=== PATIENT | male | born 1960 ===

== ENCOUNTER 2016-10-24 09:34 | Inpatient (IN) | payer BC, OTHER ==
[2016-10-24 09:45] VITALS: BMI 28.0
--- NOTE | 2016-10-24 10:14 | HP ---
CIWA Score - CIWA Score Nausea/Vomitin-Mild Nausea/No Vomiting Muscle Tremors: 4-Moderate,w/Arms Extend Anxiety: 4-Mod. Anxious/Guarded Agitation: 1-Slight > Activity Paroxysmal Sweats: 1-Minimal Palms Moist Orientation: 0-Oriented Tacttile Disturbances: 1-Very Mild Itch/Numbness Auditory Disturbances: 1-Very Mild Visual Disturbances: 1-Very Mild Sensitivity Headache: 2-Mild CIWA-Ar Total Score: 16 Admission ROS BHS - HPI Chief Complaint: I want to stop drinking Allergies/Adverse Reactions: Allergies Allergy/AdvReac Type Severity Reaction Status Date / Time No Known Allergies Allergy Verified 10/24/16 10:00 History of Present Illness: 56 yo gentleman here for detox from alcohol - states he was sober x 3 years then relapsed following his mother's . No seizures but does have black outs. Previous history of rehab. Exam Limitations: Clinical Condition - Ebola screening Have you traveled outside of the country in the last 21 days: No (N) Have you had contact with anyone from an Ebola affected area: No Have you been sick,other than usual withdrawal symptoms: No Do you have a fever: No - Review of Systems Constitutional: Loss of Appetite, Malaise, Changes in sleep, Weakness, Unintentional Wgt. Loss EENT: reports: No Symptoms Reported Respiratory: reports: No Symptoms reported Cardiac: reports: No Symptoms Reported GI: reports: Diarrhea, Poor Appetite, Indigestion : reports: Frequency Musculoskeletal: reports: Back Pain, Muscle Pain Integumentary: reports: No Symptoms Reported Neuro: reports: Headache Endocrine: reports: No Symptoms Reported Hematology: reports: No Symptoms Reported Psychiatric: reports: Judgement Intact, Mood/Affect Appropiate, Anxious Other Systems: Reviewed and Negative Patient History - Patient Medical History Hx Anemia: No Hx Asthma: No Hx Chronic Obstructive Pulmonary Disease (COPD): No Hx Cancer: No Hx Cardiac Disorders: No Hx Congestive Heart Failure: No Hx Hypertension: Yes (on meds) Hx Hypercholesterolemia: No Hx Pacemaker: No HX Cerebrovascular Accident: No Hx Seizures: No Hx Dementia: No Hx Diabetes: No Hx Gastrointestinal Disorders: No Hx Liver Disease: No Hx Genitourinary Disorders: No Hx Sexually Transmitted Disorders: Yes Hx Renal Disease (ESRD): No Hx Thyroid Disease: No Hx Human Immunodeficiency Virus (HIV): No Hx Hepatitis C: No Hx Depression: Yes Hx Suicide Attempt: Yes (years ago) Hx Bipolar Disorder: Yes Hx Schizophrenia: Yes (hears voices, hospitalized 1999) - Patient Surgical History Past Surgical History: Yes Hx Abdominal Surgery: Yes (left hiatal hernia 1974) Hx Orthopedic Surgery: Yes (left knee 2014 - total knee replacement) - PPD History Previous Implant?: Yes Documented Results: Negative w/o proof Implanted On Prior R Admission?: No PPD to be Administered?: Yes - Reproductive History Patient is a Female of Child Bearing Age (11 -55 yrs old): No (male) - Smoking Cessation Smoking history: Current every day smoker Have you smoked in the past 12 months: Yes Aproximately how many cigarettes per day: 2 Hx Chewing Tobacco Use: No Initiated information on smoking cessation: Yes 'Breaking Loose' booklet given: 10/24/16 (given on floor) - Substance & Tx. History Hx Alcohol Use: Yes Hx Substance Use: Yes Substance Use Type: Alcohol, Cocaine Hx Substance Use Treatment: Yes - Substances Abused Alcohol Route: Oral Frequency: Daily Amount used: 22oz beers three; 2 pints liquor Age of first use: 20 Date of Last Use: 10/24/16 Cocaine Route: Smoking Frequency: 1-2 times per week Amount used: $50 Age of first use: 26 Date of Last Use: 10/23/16 Family Disease History - Family Disease History Family Disease History: Heart Disease: Father (, etoh), Other: Father, Mother (internal bleeding, ), Brother (mental illness, eth) Admission Physical Exam [facility] - Vital Signs Vital Signs: Vital Signs - 24 hr 10/24/16 09:44 Temperature 97.6 F Pulse Rate 100 H Respiratory 18 Rate Blood Pressure 132/86 - Physical General Appearance: Yes: Nourished, Appropriately Dressed, Mild Distress, Anxious HEENTM: Yes: Hearing grossly Normal, Normal ENT Inspection, Normocephalic, Normal Voice, Pharynx Normal Respiratory: Yes: Normal Breath Sounds, No Respiratory Distress Neck: Yes: No masses,lesions,Nodules, Supple, Trachea in good position Breast: Yes: Breast Exam Deferred Cardiology: Yes: Regular Rhythm, Regular Rate Abdominal: Yes: Soft Genitourinary: Yes: Frequency Musculoskeletal: Yes: full range of Motion, Gait Steady, Joint Stiffness Extremities: Yes: Normal Inspection, Normal Range of Motion, Non-Tender Neurological: Yes: Fully Oriented, Alert, Normal Mood/Affect Integumentary: Yes: Normal Color, Warm Lymphatic: Yes: Within Normal Limits - Diagnostic (1) Alcohol dependence with uncomplicated withdrawal Current Visit: Yes Status: Chronic (2) Cocaine dependence Current Visit: Yes Status: Chronic Qualifiers: Substance use status: uncomplicated Qualified Code(s): F14.20 - Cocaine dependence, uncomplicated (3) HTN (hypertension) Current Visit: Yes Status: Acute Qualifiers: Hypertension type: essential hypertension Qualified Code(s): I10 - Essential (primary) hypertension Cleared for Admission S - Detox or Rehab [facility] Level of Care: Medically Managed Detox Regimen/Protocol: Librium [facility] Breath Alcohol Content Breath Alcohol Content: 0.029 Urine Drug Screen - Results Drug Screen Negative: No Urine Drug Screen Results: HENRIK-Cocaine
[2016-10-24] MEDS ORDERED: MAG HYDROX/AL HYDROX/SIMETH 30 ML UNIT-DOSE CUP PO PRN (10:23)
[2016-10-24] MEDS ORDERED: P-EPHED 60MG/TRIPROLIDI 2.5MG TABLET PO PRN (10:23)
[2016-10-24] MEDS ORDERED: MAGNESIUM CITRATE 300 ML BOTTLE PO PRN (10:23)
[2016-10-24] MEDS ORDERED: guaiFENesin/D-METHORPHAN HB 10 ML UNIT-DOSE CUPS PO PRN (10:23)
[2016-10-24] MEDS ORDERED: hydrOXYzine PAMOATE 50 MG CAPSULE (FP) PO PRN (10:23)
[2016-10-24] MEDS ORDERED: LOPERAMIDE HCL 2 MG CAPSULE PO PRN (10:23)
[2016-10-24] MEDS ORDERED: MAGNESIUM HYDROX 2400MG/30ML ORAL SUSPENSION 30 ML CUP PO PRN (10:23)
[2016-10-24] MEDS ORDERED: MENTHOL/PHENOL 1 EACH UD MM PRN (10:23)
[2016-10-24] MEDS ORDERED: chlordiazePOXIDE HCL 25 MG CAPSULE PO PRN (10:23)
[2016-10-24] MEDS ORDERED: chlordiazePOXIDE HCL 25 MG CAPSULE PO ONE (12:45)
[2016-10-24] MEDS: IBUPROFEN 400 MG TABLET (FP) PO PRN (14:10)
--- NOTE | 2016-10-24 16:07 | EKG ---
Test Reason : Blood Pressure : / mmHG Vent. Rate : 107 BPM Atrial Rate : 107 BPM P-R Int : 190 ms QRS Dur : 160 ms QT Int : 372 ms P-R-T Axes : 000 -36 050 degrees QTc Int : 496 ms SINUS TACHYCARDIA LEFT AXIS DEVIATION NON-SPECIFIC INTRA-VENTRICULAR CONDUCTION BLOCK ABNORMAL ECG NO PREVIOUS ECGS AVAILABLE Confirmed by JOEL SARKAR MD ([id number]) on 10/24/2016 4:07:01 PM Referred By: Confirmed By:JOEL SARKAR MD
[2016-10-24] MEDS: chlordiazePOXIDE HCL 25 MG CAPSULE PO SCH ×2 (17:29→22:40)
[2016-10-24 17:54] LABS: URINE APPEARANCE CLEAR; URINE BILIRUBIN NEGATIVE (NEGATIVE); URINE BLOOD NEGATIVE (NEGATIVE); URINE COLOR YELLOW; URINE GLUCOSE (UA) NEGATIVE (NEGATIVE); URINE KETONE TRACE (NEGATIVE); URINE LEUK ESTERASE NEGATIVE (NEGATIVE); URINE NITRITE NEGATIVE (NEGATIVE); URINE PROTEIN NEGATIVE (NEGATIVE); URINE UROBILINOGEN NEGATIVE E.U./dl (0.2-1.0)
--- NOTE | 2016-10-24 18:25 | CONSULT ---
[facility] Psychiatric Consult - Data Date of interview: 10/24/16 Admission source: [facility] Identifying data: Readmission to [facility] for this 56 y/o AA male seeking detox treatment on for alcohol dependence.Patient is single,a father of one,domiciled,unemployed and supported on [facility] benefits. Substance Abuse History: - Smoking Cessation. Smoking history: Current every day smoker. Have you smoked in the past 12 months: Yes. Aproximately how many cigarettes per day: 2. Hx Chewing Tobacco Use: No. Initiated information on smoking cessation: Yes. 'Breaking Loose' booklet given: 10/24/16 (given on floor). - Substance & Tx. History. Hx Alcohol Use: Yes. Hx Substance Use: Yes. Substance Use Type: Alcohol, Cocaine. Hx Substance Use Treatment: Yes. - Substances Abused. Alcohol. Route: Oral. Frequency: Daily. Amount used : 22oz beers three; 2 pints liquor. Age of first use: 20. Date of Last Use: . Cocaine. Route: Smoking. Frequency: 1-2 times per week. Amount used: $50. Age of first use: 26. Date of Last Use: 10/23/16. Confirmed by patient. Medical History: Remarkable for a history of left knee replacement (2014), surgery for left hiatal hernia (1974) and hypertension. Psychiatric History: History of multiple psychiatric hospitalizations.Known to [facility] and [facility].Patient is diagnosed with Schizoaffective Disorder.Mr Morales states that he is followed at the [facility] where he sees Dr Benton for medication management (depakote,seroquel).No recall of doses.The patient admits to prolonged non-adherence to [facility] care.Has not kept his appointment with his psychiatrist or taken medications for " more than two months" as per self- report.He is now requesting to get back on seroquel and depakote.Noted history of a suicide attempt 10 years ago. Physical/Sexual Abuse/Trauma History: Patient denies. Additional Comment: Urine Drug Screen Results: HENRIK-Cocaine.Noted. Mental Status Exam - Mental Status Exam Alert and Oriented to: Time, Place, Person Patient Appearance: Well Groomed Mood: Anxious, Apprehensive, Hopeful Affect: Mood Congruent Patient Behavior: Fatigued, Appropriate, Cooperative Speech Pattern: Clear, Appropriate Voice Loudness: Normal Thought Process: Goal Oriented Thought Disorder: Not Present Hallucinations: Denies Suicidal Ideation: Denies Homicidal Ideation: Denies Insight/Judgement: Poor Sleep: Poorly, Difficulty falling asleep Appetite: Good Muscle strength/Tone: Normal Gait/Station: Normal Psychiatric Findings - Problem List (Kermit 1, 2,3) (1) Alcohol dependence with uncomplicated withdrawal Current Visit: Yes Status: Acute (2) Cocaine dependence Current Visit: Yes Status: Acute Qualifiers: Substance use status: uncomplicated Qualified Code(s): F14.20 - Cocaine dependence, uncomplicated (3) Substance induced mood disorder Current Visit: Yes Status: Acute (4) Schizoaffective disorder Current Visit: Yes Status: Chronic Comment: Self-report. (5) HTN (hypertension) Current Visit: Yes Status: Acute Qualifiers: Hypertension type: essential hypertension Qualified Code(s): I10 - Essential (primary) hypertension - Initial Treatment Plan Initial Treatment Plan: Psychoeducation.Detoxification.Medications : seroquel 100 mg po hs (patient has not taken that medication since june 2016) + depakote 500 mg po bid (to start after valproic acid level becomes available) .To hold if liver function tests are abnormal.Pharmacy claims are reviewed : confirmed non compliance with medications.Titration of seroquel as clinically indicated.Observation.Side effects/benefits discussed with patient.He agrees with this careplan.
[2016-10-24] MEDS: THIAMINE HCL 100 MG TABLET (FP) PO SCH (22:39)
[2016-10-24] MEDS: QUEtiapine FUMARATE 100 MG TABLET (FP) PO SCH (22:39)
[2016-10-24] MEDS: diphenhydrAMINE HCL 50 MG CAPSULE PO PRN (22:40)
[2016-10-25] MEDS: chlordiazePOXIDE HCL 25 MG CAPSULE PO SCH ×4 (05:41→22:45)
[2016-10-25 09:20] LABS: MCH 29.2 pg (25.7-33.7); MCHC 33.4 g/dl (32.0-35.9); MEAN CELL VOLUME 87.4 fl (80-96); MEAN PLT VOLUME 10.7 fl (7.5-11.1); PLATELET COUNT 161 K/MM3 (134-434); RDW 15.1 % (11.9-15.9); WHITE BLOOD COUNT 5.6 K/mm3 (4.0-10.0)
[2016-10-25 09:28] LABS: ALBUMIN 4.4 g/dl (3.4-5.0); ANION GAP 10 (8-16); CALCIUM 9.4 mg/dL (8.5-10.1); CO2 25 mmol/L (21-32); GLUCOSE,RANDOM 80 mg/dL (74-106); SGOT/AST 20 U/L (15-37); SGPT/ALT 23 U/L (12-78)
[2016-10-25 09:30] LABS: ALK PHOS 77 U/L (45-117); BILIRUBIN,TOTAL 0.8 mg/dL (0.2-1.0); CREATININE 0.9 mg/dL (0.7-1.3); TOT PROT 7.7 g/dl (6.4-8.2)
[2016-10-25] MEDS: PRENATAL VITAMINS W/ FOLIC ACID TABLET (FP) PO SCH (10:38)
[2016-10-25] MEDS: METOPROLOL SUCCINATE 25 MG TAB.SR.24H (FP) PO SCH (10:39)
--- NOTE | 2016-10-25 14:53 | PN ---
S CIWA - CIWA Score Nausea/Vomitin-Mild Nausea/No Vomiting Muscle Tremors: 4-Moderate,w/Arms Extend Anxiety: 4-Mod. Anxious/Guarded Agitation: 3 Paroxysmal Sweats: No Perspiration Orientation: 0-Oriented Tacttile Disturbances: 1-Very Mild Itch/Numbness Auditory Disturbances: 0-None Visual Disturbances: 0-None Headache: 2-Mild CIWA-Ar Total Score: 15 BHS Progress Note (SOAP) Subjective: Restless, interrupted sleep, sweating, anxious, tremor Objective: 10/25/16 14:52 Last Vital Signs Temp Pulse Resp BP Pulse Ox 98.1 F 74 18 137/62 10/25/16 13:38 10/25/16 13:38 10/25/16 13:38 10/25/16 13:38 Laboratory Tests 10/24/16 10/25/16 10/25/16 14:00 06:00 07:20 WBC 5.6 RBC 5.27 Hgb 15.4 Hct 46.1 MCV 87.4 MCHC 33.4 RDW 15.1 Plt Count 161 MPV 10.7 Sodium Potassium Chloride Carbon Dioxide Anion Gap BUN Creatinine Creat Clearance w eGFR Random Glucose Calcium Total Bilirubin AST ALT Alkaline Phosphatase Total Protein Albumin Urine Color Yellow Urine Appearance Clear Urine pH 6.0 Ur Specific [place] 1.019 Urine Protein Negative Urine Glucose (UA) Negative Urine Ketones Trace H Urine Blood Negative Urine Nitrite Negative Urine Bilirubin Negative Urine Urobilinogen Negative Ur Leukocyte Esterase Negative Valproic Acid 43.155 L RPR Titer 10/25/16 10/25/16 07:20 07:20 WBC RBC Hgb Hct MCV MCHC RDW Plt Count MPV Sodium 144 Potassium 4.0 Chloride 109 H Carbon Dioxide 25 Anion Gap 10 BUN 9 Creatinine 0.9 Creat Clearance w eGFR > 60 Random Glucose 80 Calcium 9.4 Total Bilirubin 0.8 AST 20 ALT 23 Alkaline Phosphatase 77 Total Protein 7.7 Albumin 4.4 Urine Color Urine Appearance Urine pH Ur Specific [place] Urine Protein Urine Glucose (UA) Urine Ketones Urine Blood Urine Nitrite Urine Bilirubin Urine Urobilinogen Ur Leukocyte Esterase Valproic Acid RPR Titer Nonreactive Labs noted Assessment: 10/25/16 14:53 Withdrawal symptoms Plan: Continue detox
[2016-10-25] MEDS: IBUPROFEN 400 MG TABLET (FP) PO PRN (17:33)
[2016-10-25] MEDS: QUEtiapine FUMARATE 100 MG TABLET (FP) PO SCH (22:45)
[2016-10-25] MEDS: diphenhydrAMINE HCL 50 MG CAPSULE PO PRN (22:45)
[2016-10-25] MEDS: DIVALPROEX SODIUM 500 MG TABLET E.C. PO SCH (22:45)
[2016-10-25] MEDS: THIAMINE HCL 100 MG TABLET (FP) PO SCH (22:46)
[2016-10-26] MEDS: ACETAMINOPHEN 325 MG TABLET (FP) PO PRN ×2 (05:37→22:30)
[2016-10-26] MEDS: chlordiazePOXIDE HCL 25 MG CAPSULE PO SCH ×2 (05:40→10:51)
[2016-10-26] MEDS: DIVALPROEX SODIUM 500 MG TABLET E.C. PO SCH ×2 (10:50→22:27)
[2016-10-26] MEDS: METOPROLOL SUCCINATE 25 MG TAB.SR.24H (FP) PO SCH (10:50)
[2016-10-26] MEDS: PRENATAL VITAMINS W/ FOLIC ACID TABLET (FP) PO SCH (10:50)
--- NOTE | 2016-10-26 11:46 | PN ---
S CIWA - CIWA Score Nausea/Vomitin-No Nausea/No Vomiting Muscle Tremors: 3 Anxiety: 4-Mod. Anxious/Guarded Agitation: 4-Moderately Restless Paroxysmal Sweats: 3 Orientation: 0-Oriented Tacttile Disturbances: 0-None Auditory Disturbances: 0-None Visual Disturbances: 0-None Headache: 0-None Present CIWA-Ar Total Score: 14 BHS Progress Note (SOAP) Subjective: ANXIETY,TREMORS,SWEATING,INTERRUPTED SLEEP,RESTLESS Objective: 10/26/16 11:45 Vital Signs - 8 hr 10/26/16 10/26/16 06:40 10:26 Temperature 97.6 F 98.1 F Pulse Rate 52 L 77 Respiratory 18 20 Rate Blood Pressure 101/76 97/63 Laboratory Tests 10/24/16 10/25/16 10/25/16 14:00 06:00 07:20 WBC 5.6 RBC 5.27 Hgb 15.4 Hct 46.1 MCV 87.4 MCHC 33.4 RDW 15.1 Plt Count 161 MPV 10.7 Sodium Potassium Chloride Carbon Dioxide Anion Gap BUN Creatinine Creat Clearance w eGFR Random Glucose Calcium Total Bilirubin AST ALT Alkaline Phosphatase Total Protein Albumin Urine Color Yellow Urine Appearance Clear Urine pH 6.0 Ur Specific [place] 1.019 Urine Protein Negative Urine Glucose (UA) Negative Urine Ketones Trace H Urine Blood Negative Urine Nitrite Negative Urine Bilirubin Negative Urine Urobilinogen Negative Ur Leukocyte Esterase Negative Valproic Acid 43.155 L RPR Titer 10/25/16 10/25/16 07:20 07:20 WBC RBC Hgb Hct MCV MCHC RDW Plt Count MPV Sodium 144 Potassium 4.0 Chloride 109 H Carbon Dioxide 25 Anion Gap 10 BUN 9 Creatinine 0.9 Creat Clearance w eGFR > 60 Random Glucose 80 Calcium 9.4 Total Bilirubin 0.8 AST 20 ALT 23 Alkaline Phosphatase 77 Total Protein 7.7 Albumin 4.4 Urine Color Urine Appearance Urine pH Ur Specific [place] Urine Protein Urine Glucose (UA) Urine Ketones Urine Blood Urine Nitrite Urine Bilirubin Urine Urobilinogen Ur Leukocyte Esterase Valproic Acid RPR Titer Nonreactive LABS NOTED Assessment: 10/26/16 11:45 WITHDRAWAL SX. Plan: CONTINUE DETOX
[2016-10-26] MEDS: IBUPROFEN 400 MG TABLET (FP) PO PRN (17:11)
[2016-10-26] MEDS: chlordiazePOXIDE 5 MG CAPSULE PO SCH ×2 (17:11→22:27)
[2016-10-26] MEDS: diphenhydrAMINE HCL 50 MG CAPSULE PO PRN (22:27)
[2016-10-26] MEDS: QUEtiapine FUMARATE 100 MG TABLET (FP) PO SCH (22:27)
[2016-10-26] MEDS: THIAMINE HCL 100 MG TABLET (FP) PO SCH (22:27)
[2016-10-27] MEDS: chlordiazePOXIDE 5 MG CAPSULE PO SCH ×2 (05:38→10:44)
[2016-10-27] MEDS: IBUPROFEN 400 MG TABLET (FP) PO PRN ×2 (05:40→20:38)
[2016-10-27] MEDS: PRENATAL VITAMINS W/ FOLIC ACID TABLET (FP) PO SCH (10:44)
[2016-10-27] MEDS: DIVALPROEX SODIUM 500 MG TABLET E.C. PO SCH ×2 (10:44→22:16)
--- NOTE | 2016-10-27 11:05 | PN ---
BHS Progress Note (SOAP) Subjective: SWEATING,INTERRUPTED SLEEP,RESTLESS Objective: 10/27/16 11:04 Vital Signs - 8 hr 10/27/16 10/27/16 10/27/16 03:35 06:22 09:26 Temperature 98.1 F Pulse Rate 82 84 Respiratory 18 18 18 Rate Blood Pressure 107/78 109/77 Laboratory Last Values WBC 5.6 K/mm3 (4.0-10.0) 10/25/16 07:20 RBC 5.27 M/mm3 (4.00-5.60) 10/25/16 07:20 Hgb 15.4 GM/dL (11.7-16.9) 10/25/16 07:20 Hct 46.1 % (35.4-49) 10/25/16 07:20 MCV 87.4 fl (80-96) 10/25/16 07:20 MCHC 33.4 g/dl (32.0-35.9) 10/25/16 07:20 RDW 15.1 % (11.9-15.9) 10/25/16 07:20 Plt Count 161 K/MM3 (134-434) 10/25/16 07:20 MPV 10.7 fl (7.5-11.1) 10/25/16 07:20 Sodium 144 mmol/L (136-145) 10/25/16 07:20 Potassium 4.0 mmol/L (3.5-5.1) 10/25/16 07:20 Chloride 109 mmol/L (98-107) H 10/25/16 07:20 Carbon Dioxide 25 mmol/L (21-32) 10/25/16 07:20 Anion Gap 10 (8-16) 10/25/16 07:20 BUN 9 mg/dL (7-18) 10/25/16 07:20 Creatinine 0.9 mg/dL (0.7-1.3) 10/25/16 07:20 Creat Clearance w eGFR > 60 (>60) 10/25/16 07:20 Random Glucose 80 mg/dL (74-106) 10/25/16 07:20 Calcium 9.4 mg/dL (8.5-10.1) 10/25/16 07:20 Total Bilirubin 0.8 mg/dL (0.2-1.0) 10/25/16 07:20 AST 20 U/L (15-37) 10/25/16 07:20 ALT 23 U/L (12-78) 10/25/16 07:20 Alkaline Phosphatase 77 U/L (45-117) 10/25/16 07:20 Total Protein 7.7 g/dl (6.4-8.2) 10/25/16 07:20 Albumin 4.4 g/dl (3.4-5.0) 10/25/16 07:20 Urine Color Yellow 10/24/16 14:00 Urine Appearance Clear 10/24/16 14:00 Urine pH 6.0 (5.0-8.0) 10/24/16 14:00 Ur Specific [place] 1.019 (1.001-1.035) 10/24/16 14:00 Urine Protein Negative (NEGATIVE) 10/24/16 14:00 Urine Glucose (UA) Negative (NEGATIVE) 10/24/16 14:00 Urine Ketones Trace (NEGATIVE) H 10/24/16 14:00 Urine Blood Negative (NEGATIVE) 10/24/16 14:00 Urine Nitrite Negative (NEGATIVE) 10/24/16 14:00 Urine Bilirubin Negative (NEGATIVE) 10/24/16 14:00 Urine Urobilinogen Negative E.U./dl (0.2-1.0) 10/24/16 14:00 Ur Leukocyte Esterase Negative (NEGATIVE) 10/24/16 14:00 Valproic Acid 43.155 ug/ml (50-100) L 10/25/16 06:00 RPR Titer Nonreactive (NONREACTIVE) 10/25/16 07:20 LABS NOTED Assessment: 10/27/16 11:05 WITHDRAWAL SX. Plan: CONTINUE DETOX
[2016-10-27] MEDS: METOPROLOL SUCCINATE 25 MG TAB.SR.24H (FP) PO SCH (11:53)
[2016-10-27] MEDS: chlordiazePOXIDE HCL 10 MG CAPSULE PO SCH ×2 (17:20→22:17)
[2016-10-27] MEDS: QUEtiapine FUMARATE 100 MG TABLET (FP) PO SCH (22:16)
[2016-10-27] MEDS: diphenhydrAMINE HCL 50 MG CAPSULE PO PRN (22:16)
[2016-10-27] MEDS: THIAMINE HCL 100 MG TABLET (FP) PO SCH (22:16)
[2016-10-28] MEDS: chlordiazePOXIDE HCL 10 MG CAPSULE PO SCH (05:34)
[2016-10-28 06:23] VITALS: BP 114/83; PULSE 83; TEMP 97.8
[2016-10-28] MEDS: PRENATAL VITAMINS W/ FOLIC ACID TABLET (FP) PO SCH (09:05)
[2016-10-28] MEDS: METOPROLOL SUCCINATE 25 MG TAB.SR.24H (FP) PO SCH (09:05)
[2016-10-28] MEDS: DIVALPROEX SODIUM 500 MG TABLET E.C. PO SCH (09:05)
--- NOTE | 2016-10-28 10:53 | DS ---
[facility] Detox Discharge Summary Admission Date: 10/24/16 Discharge Date: 10/28/16 - History Present History: Alcohol Dependence, Cocaine Dependence Additional Comments: DETOX COMPLETED Pertinent Past History: HTN HX SCHIZOPHRENIA - Physical Exam Results Vital Signs: Vital Signs Temperature 97.8 F 10/28/16 06:22 Pulse Rate 83 10/28/16 06:22 Respiratory Rate 16 10/28/16 06:22 Blood Pressure 114/83 10/28/16 06:22 O2 Sat by Pulse Oximetry (%) Pertinent Admission Physical Exam Findings: WITHDRAWAL SX - Treatment Hospital Course: Detox Protocol Followed, Detoxed Safely, Responded well, Discharged Condition Good - Medication Discharge Medications: Ambulatory Orders Divalproex *ER* [Depakote *ER* -] 1,500 mg PO HS 10/24/16 Divalproex [Depakote -] 500 mg PO BID #60 tablet.ec 10/24/16 Metoprolol Succinate [Toprol Xl -] 25 mg PO DAILY 10/24/16 Quetiapine Fumarate [Seroquel -] 200 mg PO HS #30 tab 10/24/16 Quetiapine Fumarate [Seroquel -] 400 mg PO HS 10/24/16 - Diagnosis (1) Alcohol dependence with uncomplicated withdrawal Status: Acute (2) Cocaine dependence Status: Acute Qualifiers: Substance use status: uncomplicated Qualified Code(s): F14.20 - Cocaine dependence, uncomplicated (3) HTN (hypertension) Status: Chronic Qualifiers: Hypertension type: essential hypertension Qualified Code(s): I10 - Essential (primary) hypertension (4) Substance induced mood disorder Status: Acute (5) Schizoaffective disorder Status: Chronic - AMA Did Patient Leave Against Medical Advice: No
== END 2016-10-28 09:25 | disposition home or self-care (01) | DRG 897 ==
LOC: YASAS 09:34 → Y3N 12:30
PROVIDERS: ADMIT Internal Medicine; ATTEND Internal Medicine
PROC: HZ2ZZZZ Detoxification Services for Substance Abuse Treatment (ICD-10-PCS; principal; 2016-10-24)
DX: F10.230 Alcohol dependence with withdrawal, uncomplicated (principal); F14.20 Cocaine dependence, uncomplicated; F19.24 Other psychoactive substance dependence with psychoactive substance-induced mood disorder; F25.9 Schizoaffective disorder, unspecified; I10 Essential (primary) hypertension; Z96.652 Presence of left artificial knee joint; Z91.5 Personal history of self-harm; Z72.0 Tobacco use
CPT/HCPCS: 36415; 80053; 80164; 81003; 85027; 86593; 93005; 93010